=== PATIENT | female | born 1975 | race American Indian/Alaskan Native ===

== ENCOUNTER 2021-02-03 01:19 | Emergency (ER) | payer OTHER ==
[2021-02-03 04:40] VITALS: BP 125/77
--- NOTE | 2021-02-03 05:27 | XRay Report ---
LEFT KNEE 2 VIEW(S) INDICATION / CLINICAL INFORMATION: swollen left knee COMPARISON: None available. FINDINGS: BONES / JOINT(S): No acute fracture or subluxation. Moderate tricompartmental degenerative arthrosis SOFT TISSUES: No significant abnormality. ADDITIONAL FINDINGS: None. Signer Name: Matheus Coe MD Signed: 02/03/2021 5:23 AM Workstation Name: [id number]
[2021-02-03] MEDS ORDERED: IBUPROFEN 800 MG TAB PO STA (09:30)
[2021-02-03] MEDS ORDERED: ACETAMINOPHEN 500 MG TAB PO STA (09:30)
[2021-02-03] MEDS ORDERED: HYDROcodone/ACETAMINOPHEN 5-325 MG TAB PO ONE (09:53)
--- NOTE | 2021-02-03 10:01 | Emergency Department Report ---
ED General Adult HPI - General Chief complaint: Extremity Injury, Lower Stated complaint: LEFT KNEE Time Seen by Provider: 02/03/21 09:32 Source: patient Mode of arrival: Ambulatory Limitations: No Limitations - History of Present Illness Initial comments: 46-year-old -[place] female patient presents with complaints of left knee pain x3 days. Patient states her pain began after a fall injury. She denies any direct trauma to the knee, loss of sensation to the leg, or skin changes. She rates her current pain as a 9/10 in severity and states it worsens to touch, with movement, and with ambulation. Patient is ambulating with crutches. OTC medication not helping per patient. - Related Data Previous Rx's Medication Instructions Recorded Last Taken Type Acetaminophen [Acetaminophen TAB] 650 mg PO Q4H PRN #60 tablet 05/17/13 Unknown Rx Aspirin [Aspirin BABY CHEW TAB] 81 mg PO QDAY #30 tab.chew 05/17/13 Unknown Rx HYDROcodone/APAP 5-325 [[place] 1 each PO Q6HR PRN #20 tablet 12/05/13 Unknown Rx 5/325 mg] Acetaminophen/Codeine [Tylenol 1 tab PO Q8H PRN #6 tab 02/03/21 Unknown Rx /Codeine # 3 tab] Naproxen [EC-Naprosyn] 500 mg PO BID PRN #20 tablet. 02/03/21 Unknown Rx Allergies Allergy/AdvReac Type Severity Reaction Status Date / Time No Known Allergies Allergy Verified 02/03/21 04:39 ED Review of Systems ROS: Stated complaint: LEFT KNEE Other details as noted in HPI Musculoskeletal: joint swelling, arthralgia Skin: denies: change in color Neurological: abnormal gait. denies: numbness, paresthesias ED Past Medical Hx - Past Medical History Previous Medical History?: Yes Hx HIV: No Additional medical history: Heart Murmur- admitted at [facility]. - Surgical History Past Surgical History?: No - Social History Smoking Status: Never Smoker Substance Use Type: None - Medications Home Medications: Home Medications Medication Instructions Recorded Confirmed Last Taken Type Acetaminophen [Acetaminophen TAB] 650 mg PO Q4H PRN #60 tablet 05/17/13 Unknown Rx Aspirin [Aspirin BABY CHEW TAB] 81 mg PO QDAY #30 tab.chew 05/17/13 Unknown Rx HYDROcodone/APAP 5-325 [[place] 1 each PO Q6HR PRN #20 tablet 12/05/13 Unknown Rx 5/325 mg] Acetaminophen/Codeine [Tylenol 1 tab PO Q8H PRN #6 tab 02/03/21 Unknown Rx /Codeine # 3 tab] Naproxen [EC-Naprosyn] 500 mg PO BID PRN #20 tablet. 02/03/21 Unknown Rx ED Physical Exam - General Limitations: No Limitations General appearance: alert, in no apparent distress, obese - Head Head exam: Present: atraumatic, normocephalic - Eye Eye exam: Present: normal appearance - Respiratory Respiratory exam: Absent: respiratory distress - Cardiovascular Cardiovascular Exam: Present: regular rate - Expanded Lower Extremity Exam Left Knee exam: Present: tenderness (Anterior upper patellar tendon/lower patella bone), swelling (Mild). Absent: full ROM (Limited secondary to pain), laceration, ecchymosis, deformity Lower Leg exam: Present: normal inspection Ankle exam: Present: normal inspection Foot/Toe exam: Present: normal inspection Gait: Positive: antalgic - Neurological Exam Neurological exam: Present: alert, oriented X3 - Psychiatric Psychiatric exam: Present: normal affect, normal mood - Skin Skin exam: Present: warm, dry, intact, normal color. Absent: rash, cyanosis, diaphoretic ED Course Vital Signs 02/03/21 02/03/21 02/03/21 04:36 10:09 10:10 Temperature 98.8 F Pulse Rate 68 Respiratory 18 16 16 Rate Blood Pressure 125/77 [Left] O2 Sat by Pulse 100 Oximetry ED Medical Decision Making - Radiology Data Radiology results: report reviewed Fluoro Time In Minutes: LEFT KNEE 2 VIEW(S) INDICATION / CLINICAL INFORMATION: swollen left knee COMPARISON: None available. FINDINGS: BONES / JOINT(S): No acute fracture or subluxation. Moderate tricompartmental degenerative arthrosis SOFT TISSUES: No significant abnormality. ADDITIONAL FINDINGS: None. - Medical Decision Making 46-year-old -[place] female patient presents with complaints of left knee pain x3 days. Patient states her pain began after a fall injury. She denies any direct trauma to the knee, loss of sensation to the leg, or skin changes. She rates her current pain as a 9/10 in severity and states it worsens to touch, with movement, and with ambulation. Patient is ambulating with crutches. OTC medication not helping per patient. X-rays of the knee are negative for any acute bony abnormalities. Patient to continue on her crutches. Knee brace provided. Recommend follow-up with orthopedics in 3 days. She is well-appearing, her vitals are within normal limits, she is stable for discharge home. Strict return precautions were discussed in detail with patient who verbalizes understanding. Critical care attestation.: If time is entered above; I have spent that time in minutes in the direct care of this critically ill patient, excluding procedure time. ED Disposition Clinical Impression: Left knee injury Disposition: HOME / SELF CARE / HOMELESS Is pt being admited?: No Condition: Stable Instructions: Knee Sprain, Adult Prescriptions: Naproxen [EC-Naprosyn] 500 mg PO BID PRN #20 tablet. PRN Reason: Pain, Moderate (4-6) Acetaminophen/Codeine [Tylenol /Codeine # 3 tab] 1 tab PO Q8H PRN #6 tab PRN Reason: Pain , Severe (7-10) Referrals: [facility] [Provider Group] - 3-5 Days ARIES MACK MD [Staff Physician] - 3-5 Days Forms: Work/School Release Form(ED)
--- NOTE | 2021-02-03 11:15 | XRay Report ---
LEFT KNEE ONE VIEW INDICATION: patellar pain; ap and lat view normal. COMPARISON: 2 views of the left knee performed earlier today IMPRESSION: [place] view of the left knee is presented. There appears to be normal alignment of the patella in the femoral groove. Moderate retropatellar spurring is again noted. No acute osseous abno rmality. Signer Name: Del Sandy Jr, MD Signed: 02/03/2021 11:11 AM Workstation Name: [id number]
== END 2021-02-03 12:06 | disposition home or self-care (01) ==
LOC: ED 01:19
DX: S89.92XA Unspecified injury of left lower leg, initial encounter (principal); Z79.899 Other long term (current) drug therapy; W18.39XA Other fall on same level, initial encounter; Y93.89 Activity, other specified; Y92.89 Other specified places as the place of occurrence of the external cause; Y99.8 Other external cause status
CPT/HCPCS: 29530; 99283